=== PATIENT | female | born 1985 | race Caucasian/White ===

== ENCOUNTER 2019-04-15 13:20 | Emergency (ER) | payer OTHER ==
[~2019-04-15] VITALS: Ht 162.6 cm; Wt 59.1 kg
[~2019-04-15 13:20] MED LIST: MOTR200T44 PO; PERC5TAB12 PO; PERCOCET PO
[2019-04-15] MEDS ORDERED: MECL-68 PO (14:48)
[2019-04-15 14:55] VITALS: BP 138/77
--- NOTE | 2019-04-16 05:54 | ECGEPIP ---
[facility] - ED Test Date: 2019-04-15 Pat Name: ANTHONY WOODARD Department: Room: - Gender: Female District Supervisor: : 1985 Requested By: JOSE Christine PA-C Order Number: [id number] Reading MD: Kye De La Garza Measurements Intervals [place] Rate: 62 P: 71 OR: 126 QRS: 63 QRSD: 87 T: 40 QT: 397 QTc: 404 Interpretive Statements SINUS RHYTHM WITH SINUS ARRHYTHMIA NO PRIORS FOR COMPARISON Electronically Signed on 04-16-2019 5:54:27 EDT by Kye De La Garza
== END 2019-04-15 14:58 | disposition home or self-care (01) ==
LOC: M ED 13:20
DX: R42 Dizziness and giddiness (principal); H91.93 Unspecified hearing loss, bilateral; F17.200 Nicotine dependence, unspecified, uncomplicated; Z79.899 Other long term (current) drug therapy; I49.9 Cardiac arrhythmia, unspecified

== ENCOUNTER 2019-04-19 09:47 | Emergency (ER) | payer OTHER ==
[~2019-04-19] VITALS: Ht 162.6 cm; Wt 59.1 kg
[~2019-04-19 09:47] MED LIST changes: +MECL-68 PO
[2019-04-19] MEDS ORDERED: NS 1,000 ML IV ONE (11:00)
[2019-04-19 11:18] LABS: BASO # 0.1 10^3/uL (0.0-0.2); BASO % 0.7 % (0.0-1.0); EOS # 0.2 10^3/uL (0.0-0.5); EOS % 2.6 % (0.0-3.0); HEMATOCRIT 42.4 % (36.0-47.0); LYMPH # 2.3 10^3/uL (1.5-5.0); LYMPH % 30.4 % (24.0-44.0); MEAN CORPUSCULAR HEMOGLOBIN 30.2 pg (27.0-33.0); MEAN CORPUSCULAR VOLUME 91.6 fl (80.0-96.0); MONO # 0.7 10^3/uL (0.0-0.8); MONO % 8.5 % (0.0-5.0); NEUTROPHILS # 4.4 10^3/uL (1.5-8.5); NEUTROPHILS % 57.7 % (36.0-66.0); PLATELET COUNT, AUTOMATED 320 10^3/uL (150-450); RED BLOOD COUNT 4.63 10^6/uL (4.00-5.40); WHITE BLOOD COUNT 7.7 10^3/uL (4.0-10.0)
[2019-04-19 11:49] LABS: BLOOD UREA NITROGEN 4 MG/DL (7-18); CALCIUM LEVEL 9.6 MG/DL (8.5-10.1); CARBON DIOXIDE LEVEL 25 MEQ/L (21-32); CHLORIDE LEVEL 108 MEQ/L (98-107); FREE T4 0.92 NG/DL (0.76-1.46); GLOMERULAR FILTRATION RATE > 60.0 (>60); GLUCOSE, FASTING 82 MG/DL (70-100); POTASSIUM SERUM 4.2 MEQ/L (3.5-5.1); SODIUM LEVEL 139 MEQ/L (136-145)
--- NOTE | 2019-04-19 12:04 | REP ---
CT BRAIN WITHOUT IV CONTRAST: CT brain performed without IV contrast. The ventricles are normal in size and position. There is no midline shift or mass effect. Etienne-white differentiation is well maintained. There is no acute intracranial hemorrhage or extra-axial fluid collection. Bone window examination is unremarkable. IMPRESSION: Negative noncontrast CT of the brain. Electronically Signed by Zachary Etienne MD 04/20/2019 04:41 P
[2019-04-19] MEDS ORDERED: PRED20TA PO (13:58)
[2019-04-19] MEDS ORDERED: TETRACAINE 0.5% OPHTH SOLN 4ML OU ONE (14:00)
[2019-04-19] MEDS ORDERED: predniSONE 20 MG TAB PO ONE (14:00)
[2019-04-19 14:13] VITALS: BP 131/75
== END 2019-04-19 14:21 | disposition home or self-care (01) ==
LOC: M ED 09:47
DX: H01.9 Unspecified inflammation of eyelid (principal); R51 Headache; R26.9 Unspecified abnormalities of gait and mobility; F17.210 Nicotine dependence, cigarettes, uncomplicated; Z82.3 Family history of stroke; Z84.89 Family history of other specified conditions

== ENCOUNTER → 2019-05-01 | Outpatient (CLI) | payer OTHER ==
[~2019-05-01] MED LIST changes: +PRED20TA PO
--- NOTE | 2019-05-01 14:34 | REP ---
MR angiography the brain without contrast: History: Dizziness and giddiness. Technique: 3-D [id number] MR angiography of the brain is acquired in the usual fashion and maximal intensity projection images were generated in rotational format about the vertical and horizontal axes. In addition, source axial T1-weighted images are viewed in cine mode. MR angiographic findings: The distal vertebral arteries are patent and co-dominant. Basilar artery is a little tortuous but widely patent. The posterior cerebral and superior cerebellar vessels are normal and symmetric. The distal internal carotid arteries are unremarkable. Anterior and middle cerebral arteries appear intact. There is no visible bray aneurysm or arteriovenous malformation. Impression: Unremarkable MR angiography the brain. Electronically Signed by Ever Emmanuel MD 05/01/2019 02:25 P
--- NOTE | 2019-05-01 15:07 | REP ---
MRI brain without contrast: History: Dizziness and giddiness. . Comparison study: Comparison brain CT study April 19, 2019. Technique: Axial and sagittal imaging planes are utilized for T1 and T2-weighted scans. Sequences include spin-echo, fast spin echo, FLAIR, and diffusion weighted sequences. MRI findings: No bony calvarial lesion is seen. Craniocervical junction and upper cervical cord are normal in appearance. There is no MR evidence of significant paranasal sinus disease. No intraorbital abnormality is seen. The lateral, third, and fourth ventricles are normal in size and position. Etienne-white differentiation pattern is intact above and below the tentorium. There is no evidence of intracranial hemorrhage. No mass, infarction, extra-axial fluid collection or midline shift is seen. No abnormal white matter lesion is seen. Impression: Negative noncontrast brain MRI study. Electronically Signed by Ever Emmanuel MD 05/01/2019 02:58 P
--- NOTE | 2019-05-01 19:32 | REP ---
LIMITED CERVICAL SPINE SERIES: AP and lateral views of the cervical spine are performed. No compression fracture is seen. There is normal alignment and cervical lordosis. There is no prevertebral soft-tissue swelling. Disc spaces are well preserved. I do not see significant degenerative disc change. IMPRESSION: Negative two view cervical spine series. Electronically Signed by Zachary Etienne MD 05/02/2019 04:50 P
--- NOTE | 2019-05-01 19:39 | REP ---
CHEST, TWO VIEWS: Two views of the chest are performed. There are no prior studies for comparison. There is oval mass like density along the right heart border which appears to be located in the posterior mediastinum on the lateral view. This measures approximately 5 cm in maximum diameter. Otherwise the lungs are clear of infiltrate. The heart is normal in size and the mediastinal silhouette is otherwise unremarkable. Visualized osseous structures appear intact. IMPRESSION: Oval mass like density right inferior posterior mediastinum. Recommend CT of the chest with IV contrast to further evaluate. Electronically Signed by Zachary Etienne MD 05/03/2019 04:00 P
== END ==
LOC: M RAD 13:32
PROVIDERS: ATTEND Family Medicine
DX: R42 Dizziness and giddiness (principal); R51 Headache

== ENCOUNTER → 2019-05-23 | Outpatient (CLI) | payer OTHER ==
[2019-05-23 10:23] LABS: APPEARANCE, URINE CLEAR (CLEAR); BACTERIA, URINE AUTO NEGATIVE (NEGATIVE); BILIRUBIN, URINE AUTO NEGATIVE (NEGATIVE); BLOOD, URINE BLOOD NEGATIVE (NEGATIVE); COLOR, URINE YELLOW (YELLOW); GLUCOSE, URINE (UA) AUTO NEGATIVE (NEGATIVE); KETONE, URINE AUTO NEGATIVE (NEGATIVE); LEUKOCYTE ESTERASE, URINE AUTO NEGATIVE (NEGATIVE); MUCUS, URINE SMALL (NEGATIVE); NITRITE, URINE AUTO NEGATIVE (NEGATIVE); PROTEIN, URINE AUTO NEGATIVE (NEGATIVE); RBC, URINE AUTO 2 /HPF (0-3); SPECIFIC GRAVITY URINE AUTO 1.012 (1.002-1.035); SQUAMOUS EPITHELIAL CELL UR AU 1 /HPF (0-6); UROBILINOGEN, URINE AUTO 0.2 mg/dL (0.0-2.0); WBC, URINE AUTO 0 /HPF (0-3)
[2019-05-23 10:54] LABS: HCG, SERUM QUALITATIVE NEGATIVE (NEGATIVE)
[2019-05-23 11:10] LABS: ALBUMIN 3.7 GM/DL (3.2-5.2); ALT/SGPT 15 U/L (12-78); BILIRUBIN,TOTAL 0.3 MG/DL (0.2-1.0); BLOOD UREA NITROGEN 6 MG/DL (7-18); C REACTIVE PROTEIN QUANTITATIV < 0.30 MG/DL (0.00-0.30); CARBON DIOXIDE LEVEL 26 MEQ/L (21-32); CHLORIDE LEVEL 105 MEQ/L (98-107); CREATININE FOR GFR 0.79 MG/DL (0.55-1.30); FREE T4 0.86 NG/DL (0.76-1.46); GLOMERULAR FILTRATION RATE > 60.0 (>60); GLUCOSE, FASTING 81 MG/DL (70-100); POTASSIUM SERUM 4.4 MEQ/L (3.5-5.1); SODIUM LEVEL 139 MEQ/L (136-145); TOTAL PROTEIN 6.6 GM/DL (6.4-8.2); TROPONIN I < 0.02 NG/ML (< 0.10)
[2019-05-23 11:58] LABS: HEMOGLOBIN A1c 5.4 %
[2019-05-24 14:07] LABS: ANTINUCLEAR ANTIBODIES DIRECT Negative (Negative)
== END ==
LOC: M LAB 09:28
PROVIDERS: ATTEND Family Medicine
DX: R42 Dizziness and giddiness (principal); R51 Headache

== ENCOUNTER → 2019-05-24 | Outpatient (REF) | payer MEDICAID ==
[~2019-05-24] MED LIST changes: +ISOVUE-370 76% 100ML VIAL (Q9967) As Ordered ONE; +NICO1KIT TOP
--- NOTE | 2019-05-24 16:36 | REP ---
CT CHEST WITH IV CONTRAST: TECHNIQUE: Axial contrast enhanced images from the thoracic inlet to the upper abdomen using 100 mL Isovue 370 intravenous contrast material with multiplanar reformations. In the right posterior mediastinum is an oval paravertebral mass which measures 3.5 x 2.7 cm. It is somewhat low in density but is not purely water with a mean Hounsfield unit of approximately 42 suggesting either internal complex fluid or solid tissue. Margins are fairly smooth. There is no other evidence of mediastinal, hilar or chest wall lymphadenopathy. Heart is normal in size. There is no pleural or pericardial effusion. Lungs are otherwise clear with no infiltrate. Visualized upper abdominal structures are unremarkable. IMPRESSION: Right posterior mediastinal mass in a paravertebral location measuring 3.5 x 2.7 cm. Internal contents are either complex fluid or solid. 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 Electronically Signed by Zachary Etienne MD 05/27/2019 10:04 A
== END ==
LOC: EDSTATUS 14:55 → M RAD 15:09
PROVIDERS: ATTEND Family Medicine
DX: R91.8 Other nonspecific abnormal finding of lung field (principal)

== ENCOUNTER → 2019-06-12 | Outpatient (CLI) | payer MEDICAID ==
[~2019-06-12] MED LIST changes: -ISOVUE-370 76% 100ML VIAL (Q9967) As Ordered ONE
[2019-06-12 13:39] LABS: HEMATOCRIT 37.6 % (36.0-47.0); HEMOGLOBIN 12.2 g/dl (12.0-15.5); MEAN CORPUSCULAR HEMOGLOBIN 30.3 pg (27.0-33.0); MEAN CORPUSCULAR HGB CONC 32.4 g/dl (32.0-36.5); MEAN CORPUSCULAR VOLUME 93.3 fl (80.0-96.0); PLATELET COUNT, AUTOMATED 286 10^3/uL (150-450); RED BLOOD COUNT 4.03 10^6/uL (4.00-5.40); WHITE BLOOD COUNT 5.6 10^3/uL (4.0-10.0)
[2019-06-12 13:50] LABS: INR 1.12; PROTHROMBIN TIME 14.1 SECONDS (11.8-14.0)
[2019-06-12 13:51] LABS: PARTIAL THROMBOPLASTIN TIME 29.9 SECONDS (25.0-38.4)
[2019-06-12 13:53] LABS: APPEARANCE, URINE CLEAR (CLEAR); BACTERIA, URINE AUTO NEGATIVE (NEGATIVE); BILIRUBIN, URINE AUTO NEGATIVE (NEGATIVE); BLOOD, URINE BLOOD NEGATIVE (NEGATIVE); COLOR, URINE STRAW (YELLOW); GLUCOSE, URINE (UA) AUTO NEGATIVE (NEGATIVE); KETONE, URINE AUTO NEGATIVE (NEGATIVE); LEUKOCYTE ESTERASE, URINE AUTO NEGATIVE (NEGATIVE); NITRITE, URINE AUTO NEGATIVE (NEGATIVE); PROTEIN, URINE AUTO NEGATIVE (NEGATIVE); RBC, URINE AUTO 1 /HPF (0-3); SPECIFIC GRAVITY URINE AUTO 1.005 (1.002-1.035); SQUAMOUS EPITHELIAL CELL UR AU 0 /HPF (0-6); UROBILINOGEN, URINE AUTO 0.2 mg/dL (0.0-2.0); WBC, URINE AUTO 0 /HPF (0-3)
[2019-06-12 13:59] LABS: ABG BASE EXCESS -1.7 (-2.0-2.0); ABG HCO3 21.3 MEQ/L (22.0-26.0); ABG O2 SATURATION 98.4 % (95.0-99.0); ABG PARTIAL PRESSURE CO2 31.1 mmHg (35.0-45.0); ABG PARTIAL PRESSURE O2 113.3 mmHg (75.0-100.0); ABG STANDARD HCO3 23.1 MEQ/L (22.0-26.0); ABG TOTAL CO2 22.3 MEQ/L (22.0-29.0); ABG pH (ARTERIAL) 7.454 UNITS (7.350-7.450)
[2019-06-12 14:09] LABS: BLOOD UREA NITROGEN 6 MG/DL (7-18); CALCIUM LEVEL 8.3 MG/DL (8.5-10.1); CARBON DIOXIDE LEVEL 25 MEQ/L (21-32); CHLORIDE LEVEL 109 MEQ/L (98-107); GLOMERULAR FILTRATION RATE > 60.0 (>60); GLUCOSE, FASTING 92 MG/DL (70-100); POTASSIUM SERUM 3.8 MEQ/L (3.5-5.1); SODIUM LEVEL 140 MEQ/L (136-145)
--- NOTE | 2019-06-12 14:29 | REP ---
Two-view chest: 06/12/2019. Indication: Mass. Comparison: 05/01/2019 and 05/24/2019. Findings: The paraspinal soft tissue mass is redemonstrated. The lungs are clear. There is no pleural effusion or pneumothorax. Impression: Stable right paraspinal soft tissue mass. No acute findings. Electronically Signed by Jian Christensen DO 06/12/2019 02:21 P
--- NOTE | 2019-06-12 15:15 | ECGEPIP ---
[facility] Test Date: 2019-06-12 Pat Name: ANTHONY WOODARD Department: Room: - Gender: Female Cloud Software Engineer: MORA : 1985 Requested By: Joe Roldan Order Number: [id number] Reading MD: Sharmaine Patel Measurements Intervals [place] Rate: 70 P: 65 OK: 125 QRS: 54 QRSD: 87 T: 17 QT: 380 QTc: 412 Interpretive Statements SINUS RHYTHM INF T ABN MORE PROUNOUNCED C/W 04/15/19 Electronically Signed on 06-12-2019 15:14:49 EST by Sharmaine Patel
== END ==
LOC: M ADMPAT 12:57
PROVIDERS: ATTEND Thoracic Surgery (Cardiothoracic Vascular Surgery)
DX: Z01.818 Encounter for other preprocedural examination (principal); R22.2 Localized swelling, mass and lump, trunk

== ENCOUNTER → 2019-06-13 | Outpatient (REF) | payer MEDICAID ==
[2019-06-14 09:52] LABS: HIV 1&2 SCREEN CENTAUR NEGATIVE (NEGATIVE)
== END ==
LOC: M LAB 12:45 → EDSTATUS 06-26 14:03
PROVIDERS: ATTEND Family Medicine
DX: Z20.2 Contact with and (suspected) exposure to infections with a predominantly sexual mode of transmission (principal)

== ENCOUNTER 2019-06-19 08:59 | Inpatient (IN) | payer MEDICAID ==
[~2019-06-19] VITALS: Ht 162.6 cm; Wt 65.5 kg
[~2019-06-19 08:59] MED LIST changes: +LIDOCAINE 1% MDV 20ML VIAL SQ PRN; +LIDOCAINE 2% INJ 100 MG/5 ML SDV (FOR ANES.) As Ordered ONE; +LR 1,000 ML IV SCH; +MIDAZOLAM INJ 2 MG/2 ML VIAL (J2250) As Ordered ONE; +PROPOFOL 200 MG/20 ML VIAL As Ordered ONE; +ROCURONIUM BROMIDE 50 MG/5 ML VIAL As Ordered ONE; +ceFAZolin SOD 2 GM in IV 1 EA IV ONE; +fentaNYL 250 MCG/5 ML INJECTION (J3010) As Ordered ONE
[2019-06-19] MEDS: NICOTINE 21MG/24HR 1 EA TRANSDERMAL TD SCH (09:00)
[2019-06-19] MEDS ORDERED: CETACAINE SPRAY 5GM As Ordered ONE (09:50)
[2019-06-19] MEDS ORDERED: BUPIVACAINE LIPOSOME/PF 1.3% 20ML VIAL (13.3MG/ML)(EXPAREL)(C9290 PER1MG) As Ordered ONE (09:50)
[2019-06-19] MEDS ORDERED: BUPIVACAINE HCL 0.5% 10 ML VIAL As Ordered ONE (09:50)
[2019-06-19] MEDS ORDERED: fentaNYL 100 MCG/2 ML INJECTION (J3010) As Ordered ONE (10:19)
[2019-06-19] MEDS ORDERED: MIDAZOLAM INJ 2 MG/2 ML VIAL (J2250) As Ordered ONE (10:19)
[2019-06-19] MEDS: MUPIROCIN 2% OINT 22 GM TUBE TOP SCH ×2 (10:55→11:01)
[2019-06-19] MEDS ORDERED: ESMOLOL INJ 100MG/10ML VIAL As Ordered ONE (11:14)
[2019-06-19] MEDS ORDERED: ONDANSETRON 4MG/2ML VIAL (J2405) IV PRN ×3 (11:15→14:00)
[2019-06-19] MEDS ORDERED: MIDAZOLAM INJ 2 MG/2 ML VIAL (J2250) IV ONE (11:15)
[2019-06-19] MEDS ORDERED: NALOXONE INJ 0.4 MG/1 ML VIAL (J2310) IV PRN (11:15)
[2019-06-19] MEDS ORDERED: EPIDURAL/PCA KEYS XX PRN (11:15)
[2019-06-19] MEDS ORDERED: METOCLOPRAMIDE INJ 10MG/2ML VIAL (J2765) IV PRN (11:15)
[2019-06-19] MEDS ORDERED: fentaNYL 100 MCG/2 ML INJECTION (J3010) IV ONE (11:15)
[2019-06-19] MEDS ORDERED: WALLBOXKEY XX PRN (11:15)
[2019-06-19] MEDS ORDERED: diphenhydrAMINE INJ 50MG/ML VIAL (J1200) IV PRN (11:15)
[2019-06-19] MEDS: FENTANYL/BUPIVACAINE/NACL BAG 250 ML EPIDURAL SCH (11:15)
[2019-06-19] MEDS ORDERED: dexameTHASONE 4 MG/ML 1ML VIAL (J1100) As Ordered ONE (12:22)
[2019-06-19] MEDS ORDERED: KETOROLAC 60 MG/2 ML VIAL (J1885) As Ordered ONE (12:22)
[2019-06-19] MEDS ORDERED: ONDANSETRON 4MG/2ML VIAL (J2405) As Ordered ONE (12:22)
[2019-06-19] MEDS ORDERED: SUGAMMADEX SODIUM 500 MG/5 ML VIAL (BRIDION) As Ordered ONE (12:22)
[2019-06-19] MEDS ORDERED: BUPIVACAINE HCL 0.25% 30 ML VIAL As Ordered ONE (12:43)
[2019-06-19] MEDS ORDERED: PERCOCET 5MG/325MG TAB PO PRN ×2 (13:15)
[2019-06-19] MEDS ORDERED: ACETAMINOPHEN TAB 650MG DOSE (2X325MG) PO PRN (13:15)
[2019-06-19] MEDS ORDERED: BISACODYL 10 MG SUPP PR PRN (13:15)
[2019-06-19] MEDS ORDERED: LEVALBUTEROL 1.25 MG/0.5 ML CONCENTRATE NEB NEB PRN (13:15)
[2019-06-19] MEDS ORDERED: NORCO, ANEXSIA 5/325MG TABLET (HYDROcodone/ACETAMINOPHEN) PO PRN (13:15)
--- NOTE | 2019-06-19 13:51 | REP ---
Single view chest: 06/19/2019. Indication: Chest tube. Comparison: 06/12/2019. Findings: Postoperative sequelae are present with two right-sided chest tubes. There is no significant pneumothorax. The previously described right paraspinal mass has been resected. Impression: Postoperative sequelae with two right-sided chest tubes and no significant pneumothorax. Electronically Signed by Jian Christensen DO 06/19/2019 01:43 P
[2019-06-19 13:54] LABS: ABG BASE EXCESS -3.7 (-2.0-2.0); ABG HCO3 21.9 MEQ/L (22.0-26.0); ABG O2 SATURATION 99.8 % (95.0-99.0); ABG PARTIAL PRESSURE O2 412.3 mmHg (75.0-100.0); ABG STANDARD HCO3 21.4 MEQ/L (22.0-26.0); ABG TOTAL CO2 23.2 MEQ/L (22.0-29.0); ABG pH (ARTERIAL) 7.336 UNITS (7.350-7.450)
[2019-06-19 13:59] LABS: BASO % 0.5 % (0.0-1.0); EOS # 0.1 10^3/uL (0.0-0.5); EOS % 1.2 % (0.0-3.0); HEMATOCRIT 40.7 % (36.0-47.0); HEMOGLOBIN 13.1 g/dl (12.0-15.5); LYMPH # 1.2 10^3/uL (1.5-5.0); LYMPH % 14.4 % (24.0-44.0); MEAN CORPUSCULAR HEMOGLOBIN 30.3 pg (27.0-33.0); MEAN CORPUSCULAR HGB CONC 32.2 g/dl (32.0-36.5); MONO # 0.3 10^3/uL (0.0-0.8); MONO % 3.9 % (0.0-5.0); NEUTROPHILS # 6.7 10^3/uL (1.5-8.5); NEUTROPHILS % 79.6 % (36.0-66.0); PLATELET COUNT, AUTOMATED 262 10^3/uL (150-450); RED BLOOD COUNT 4.33 10^6/uL (4.00-5.40); WHITE BLOOD COUNT 8.4 10^3/uL (4.0-10.0)
[2019-06-19] MEDS ORDERED: fentaNYL 100 MCG/2 ML INJECTION (J3010) IV PRN (14:00)
[2019-06-19] MEDS ORDERED: LR 1,000 ML IV SCH (14:00)
[2019-06-19] MEDS ORDERED: oxyCODONE 5MG TAB PO PRN (14:00)
[2019-06-19] MEDS ORDERED: KCL 20MEQ IN D5/NS 1000ML 1,000 ML IV SCH (14:00)
[2019-06-19 14:28] LABS: BLOOD UREA NITROGEN 6 MG/DL (7-18); CALCIUM LEVEL 8.7 MG/DL (8.5-10.1); CARBON DIOXIDE LEVEL 23 MEQ/L (21-32); CHLORIDE LEVEL 109 MEQ/L (98-107); CREATININE FOR GFR 0.69 MG/DL (0.55-1.30); GLOMERULAR FILTRATION RATE > 60.0 (>60); GLUCOSE, FASTING 125 MG/DL (70-100); POTASSIUM SERUM 4.3 MEQ/L (3.5-5.1); SODIUM LEVEL 138 MEQ/L (136-145)
[2019-06-19] MEDS: MECLIZINE 25 MG TABLET PO SCH ×2 (16:00→20:39)
[2019-06-19 17:49] VITALS: BP 103/60
[2019-06-19 18:00] VITALS: BP 99/58
[2019-06-19] MEDS: KETOROLAC 30 MG/ML VIAL (J1885) IV SCH ×2 (18:20→23:23)
[2019-06-19] MEDS: ceFAZolin SOD 1 GM in D5W MINI-BAG PLUS 50 ML IV SCH (18:20)
[2019-06-19 20:00] VITALS: BP 100/69
[2019-06-19] MEDS: LEVALBUTEROL 1.25 MG/0.5 ML CONCENTRATE NEB NEB SCH (20:14)
[2019-06-19] MEDS: DOCUSATE SODIUM 100 MG CAP PO SCH (20:24)
[2019-06-19] MEDS: HEPARIN SOD (PORCINE) 5000 UNITS/ML VIAL SC SCH (20:25)
[2019-06-20] VITALS: BP 98/55
[2019-06-20] MEDS: LEVALBUTEROL 1.25 MG/0.5 ML CONCENTRATE NEB NEB SCH ×4 (01:07→20:35)
[2019-06-20] MEDS: ceFAZolin SOD 1 GM in D5W MINI-BAG PLUS 50 ML IV SCH ×3 (03:04→17:58)
[2019-06-20 04:00] VITALS: BP 101/59
[2019-06-20 05:26] LABS: BASO % 0.2 % (0.0-1.0); HEMATOCRIT 33.7 % (36.0-47.0); LYMPH # 1.6 10^3/uL (1.5-5.0); MEAN CORPUSCULAR HEMOGLOBIN 30.4 pg (27.0-33.0); MEAN CORPUSCULAR HGB CONC 32.3 g/dl (32.0-36.5); MEAN CORPUSCULAR VOLUME 93.9 fl (80.0-96.0); MONO % 6.7 % (0.0-5.0); NEUTROPHILS # 11.8 10^3/uL (1.5-8.5); NEUTROPHILS % 81.6 % (36.0-66.0); PLATELET COUNT, AUTOMATED 245 10^3/uL (150-450); RED BLOOD COUNT 3.59 10^6/uL (4.00-5.40); WHITE BLOOD COUNT 14.4 10^3/uL (4.0-10.0)
[2019-06-20 05:32] LABS: HEMOGLOBIN 10.9 g/dl (12.0-15.5)
[2019-06-20 05:46] LABS: BLOOD UREA NITROGEN 3 MG/DL (7-18); CALCIUM LEVEL 7.7 MG/DL (8.5-10.1); CARBON DIOXIDE LEVEL 23 MEQ/L (21-32); CHLORIDE LEVEL 102 MEQ/L (98-107); CREATININE FOR GFR 0.63 MG/DL (0.55-1.30); GLOMERULAR FILTRATION RATE > 60.0 (>60); GLUCOSE, FASTING 125 MG/DL (70-100); POTASSIUM SERUM 4.3 MEQ/L (3.5-5.1); SODIUM LEVEL 132 MEQ/L (136-145)
[2019-06-20] MEDS: MUPIROCIN 2% OINT 22 GM TUBE TOP SCH (06:00)
[2019-06-20] MEDS: KETOROLAC 30 MG/ML VIAL (J1885) IV SCH ×3 (06:21→17:58)
[2019-06-20 08:00] VITALS: BP 99/59
--- NOTE | 2019-06-20 08:10 | RO ---
DATE OF PROCEDURE: 06/19/2019 PREOPERATIVE DIAGNOSIS: Posterior mediastinal mass. 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 PROCEDURE: Excision of posterior mediastinal mass using video-assisted thoracoscopic surgery (VATS) techniques and bronchoscopy, five level rib block. SURGEON: Dr. Joe Sorensen MOTION PI[employer]URE CAMERA OPERATOR: ANESTHESIA: FINDINGS: The bronchoscopy revealed a normal branching tracheal bronchial tree. There were no endobronchial lesions. There were just some scant secretions on the right side. The VATS thoracoscopy revealed the posterior mediastinal tumor. This was quite discrete. This was removed in toto. I could not aspirate fluid from it, although it felt as if there was fluid in it. PROCEDURE: Under satisfactory general anesthesia and single lumen endotracheal intubation, the bronchoscope was placed in the tracheal bronchial tree. Each segment and subsegment were thoroughly inspected and there were no endobronchial lesions. There were scant secretions. The right upper lobe was clearly seen and anesthesia was made aware. The patient was then turned into the left lateral decubitus position and sterilely prepped and draped in the usual fashion. Three VATS incisions were made, initially placing three 5 mm ports. The tumor was easily visualized and there were no adhesions from the lung to the tumor. After placing the ports, the posterior mediastinal mass was then seized with a grasper and electrocautery was used to incise the mediastinal pleura and the chest wall pleura. The mass was gently dissected off the chest wall. There was no indication of it involving the neural foramen. One posterior thoracic vein was entered and this was controlled by use of hemoclips. No intercostal arteries or spinal arteries were entered. After achieving adequate hemostasis, two chest tubes, one curved and one straight #24 tubes, were placed through two of the port incisions. A 5 level rib block consisting of 0.50% Marcaine and Exparel was then instilled. The lung was reinflated under direct vision and the remaining port removed. The incision was closed with running #0 Vicryl for the extrathoracic muscles, running #3-0 Vicryl suture for the subcutaneous tissue and running #4-0 Monopril suture for the skin. The patient tolerated the procedure well and left the operating room in satisfactory condition for the recovery room.
[2019-06-20] MEDS ORDERED: FUROSEMIDE 40 MG/4 ML VIAL (J1940) IV ONE (08:30)
--- NOTE | 2019-06-20 08:30 | REP ---
Chest x-ray: Two views. History: Status post excision of posterior mediastinal mass. Comparison chest x-ray June 19, 2019. Findings: Two right-sided chest tubes are again seen. The right lung field is otherwise clear. There is minimal plate-like atelectasis in the left base. Cardiomediastinal silhouette is unremarkable. There are surgical clips to the right of midline overlying the heart. An epidural catheter is seen. Impression: Satisfactory postoperative film. Minimal plate-like atelectasis left base. Very is slight blunting of one of the posterior pleural angle is seen. Electronically Signed by Ever mEmanuel MD 06/20/2019 03:29 P
[2019-06-20] MEDS ORDERED: PANTOPRAZOLE 40MG INJ (PROTONIX) (C9113) IV SCH (09:00)
[2019-06-20] MEDS: MECLIZINE 25 MG TABLET PO SCH (09:00)
[2019-06-20] MEDS: NICOTINE 21MG/24HR 1 EA TRANSDERMAL TD SCH (09:00)
[2019-06-20] MEDS: MOM 30ML SUSPENSION UDC PO SCH (09:25)
[2019-06-20] MEDS: DOCUSATE SODIUM 100 MG CAP PO SCH ×2 (09:25→20:26)
[2019-06-20] MEDS: HEPARIN SOD (PORCINE) 5000 UNITS/ML VIAL SC SCH ×2 (09:25→20:26)
[2019-06-20] MEDS: PANTOPRAZOLE 40MG TAB (PROTONIX) PO SCH (09:25)
[2019-06-20] MEDS ORDERED: MECLIZINE 25 MG TABLET PO PRN (10:15)
--- NOTE | 2019-06-20 10:43 | IPN ---
DATE: 06/20/2019 This is now the first postoperative day for Mrs. Welsh who had an uneventful night the first night of surgery. Her pain is being well controlled with the epidural. Her vital signs show a T-max of 99.4 with a heart rate that ranges between 79 and 83 and is sinus rhythm, respiratory rate of 18-20 without the use of accessory muscles, who is 99% saturated on room air, and whose blood pressure is ranging from 99/59 to 103/60. Her intake and output the past 24 hours has been recorded as 2860 in and 1070 out for a positivity of 1790 mL. She has had 150 mL out the chest tube and her weight today is 64.8 kg compared to 61 kg yesterday. On physical examination today, her right lung shows some inspiratory rhonchi. Percussion note is full to the diaphragm. Cardiac exam is without murmurs, clicks, gallops or rubs. I cannot feel his point of maximal impulse (PMI). S1 and S2 are normal. Abdomen is soft and nontender. Bowel sounds are positive. There is no hepatomegaly. No costovertebral angle (CVA) tenderness. She has had flatus. Extremities show no pretibial edema. No calf tenderness. No differential swelling of the upper extremities. Skin is warm, dry and perfused without cyanosis or mottling including that of the nail beds and the knees. Neck is supple. There is no jugular venous distention. No subcutaneous emphysema. Trachea is midline. Mouth shows her mucous membranes to be pink and moist. Lips and commissures are without lesions. There is no thrush. Eyes show her pupils to be equal, reactive. Extraocular motors are intact. Sclera nonicteric. Neuro shows II through XII intact, along with gross motor and gross sensation intact. Gait is not tested. Psychiatric shows her to be awake and alert, oriented times three with appropriate mood, affect and conversational. Her white count today is 14.4 with a hemoglobin and hematocrit of 10.9 and 33.7, down from 13.1 and 40.7, secondary to hemodilution. Platelet count is 245. Differential shows 81% neutrophils, 11% lymphocytes, and 6% monocytes. There are no immature forms, no toxic granulations. Her sodium is 132 with a BUN and creatinine of 33 and 0.63. Potassium is 4.3 with a glucose of 125 and calcium of 7.7. Her chest x-ray shows the lung fully expanded to the chest wall. Costophrenic angles are sharp and there are no infiltrates. The mediastinal mass is now absent. Final pathology is pending, but the mass did feel cystic yesterday and ballotable. 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 IMPRESSION: 1. Postop day 1 status post excision of posterior mediastinal mass. 2. Prior tobacco abuse. 3. Prior history of anxiety and depression. PLAN AND DISCUSSION: I will diurese her today. Hopefully we will be able to remove the chest tubes tomorrow and send her home on . We await final pathology.
[2019-06-20] MEDS: FENTANYL/BUPIVACAINE/NACL BAG 250 ML EPIDURAL SCH (11:23)
[2019-06-20 13:00] VITALS: BP 97/52
[2019-06-20 16:00] VITALS: BP 93/52
[2019-06-20 20:00] VITALS: BP 92/46
[2019-06-21] VITALS: BP 90/45
[2019-06-21] MEDS: KETOROLAC 30 MG/ML VIAL (J1885) IV SCH ×4 (00:56→17:10)
[2019-06-21] MEDS: LEVALBUTEROL 1.25 MG/0.5 ML CONCENTRATE NEB NEB SCH ×4 (01:46→19:53)
[2019-06-21] MEDS: ceFAZolin SOD 1 GM in D5W MINI-BAG PLUS 50 ML IV SCH ×2 (03:28→10:14)
[2019-06-21 04:00] VITALS: BP 98/55
[2019-06-21 05:20] LABS: BASO % 0.6 % (0.0-1.0); EOS # 0.1 10^3/uL (0.0-0.5); EOS % 1.8 % (0.0-3.0); HEMATOCRIT 28.9 % (36.0-47.0); HEMOGLOBIN 9.6 g/dl (12.0-15.5); LYMPH # 1.9 10^3/uL (1.5-5.0); LYMPH % 38.3 % (24.0-44.0); MEAN CORPUSCULAR HEMOGLOBIN 30.4 pg (27.0-33.0); MEAN CORPUSCULAR HGB CONC 33.2 g/dl (32.0-36.5); MEAN CORPUSCULAR VOLUME 91.5 fl (80.0-96.0); MONO # 0.6 10^3/uL (0.0-0.8); MONO % 11.7 % (0.0-5.0); NEUTROPHILS # 2.4 10^3/uL (1.5-8.5); NEUTROPHILS % 47.4 % (36.0-66.0); PLATELET COUNT, AUTOMATED 221 10^3/uL (150-450); RED BLOOD COUNT 3.16 10^6/uL (4.00-5.40); WHITE BLOOD COUNT 5.1 10^3/uL (4.0-10.0)
[2019-06-21 05:48] LABS: BLOOD UREA NITROGEN 9 MG/DL (7-18); CALCIUM LEVEL 8.2 MG/DL (8.5-10.1); CARBON DIOXIDE LEVEL 28 MEQ/L (21-32); CHLORIDE LEVEL 103 MEQ/L (98-107); CREATININE FOR GFR 0.73 MG/DL (0.55-1.30); GLOMERULAR FILTRATION RATE > 60.0 (>60); GLUCOSE, FASTING 96 MG/DL (70-100); POTASSIUM SERUM 3.9 MEQ/L (3.5-5.1); SODIUM LEVEL 136 MEQ/L (136-145)
[2019-06-21 08:00] VITALS: BP 116/55
--- NOTE | 2019-06-21 08:04 | REP ---
Chest x-ray: Two views. History: Post excision of posterior mediastinal mass. Comparison chest x-ray: June 20, 2019. Findings: EKG monitoring electrodes overlie the chest. Epidural catheter is seen in place. Two right apical chest tubes are noted. There is minimal plate-like atelectasis in the left base. Otherwise, the lung carr are clear. No new abnormality. Electronically Signed by Ever Emmanuel MD 06/21/2019 09:48 A
[2019-06-21] MEDS: PANTOPRAZOLE 40MG TAB (PROTONIX) PO SCH (08:55)
[2019-06-21] MEDS: DOCUSATE SODIUM 100 MG CAP PO SCH ×2 (08:55→21:42)
[2019-06-21] MEDS: MOM 30ML SUSPENSION UDC PO SCH (08:55)
[2019-06-21] MEDS: NICOTINE 21MG/24HR 1 EA TRANSDERMAL TD SCH (08:56)
[2019-06-21] MEDS: HEPARIN SOD (PORCINE) 5000 UNITS/ML VIAL SC SCH ×2 (08:56→21:42)
[2019-06-21] MEDS: FENTANYL/BUPIVACAINE/NACL BAG 250 ML EPIDURAL SCH (10:10)
[2019-06-21 10:54] LABS: CHOLESTEROL LEVEL 112 MG/DL (< 200); LDH LACTATE DEHYDROGENASE 125 U/L (84-246); TOTAL PROTEIN 5.4 GM/DL (6.4-8.2); TRIGLYCERIDES LEVEL 132 MG/DL (<150)
[2019-06-21 11:28] LABS: SOURCE, BODY FLUID PLEURAL; SOURCE, BODY FLUID pH PLEURAL
[2019-06-21 11:29] LABS: APPEARANCE, BODY FLUID CLOUDY (CLEAR); PLEURAL FL COLOR PINK (COLORLESS)
[2019-06-21 11:33] LABS: PH BODY FLUID > 7.800 UNITS (NOT ESTABLISHED)
--- NOTE | 2019-06-21 11:40 | IPN ---
DATE OF SERVICE: 06/21/2019 This is now the second postoperative day for Mrs. Welsh. Her pain is being well controlled with the epidural at 10 mL/h. She is breathing well. Her vital signs show a maximum temperature (Tmax) of 98.9 with a heart rate that ranges between 57 and 83 in a sinus rhythm, respiratory rate of 18-20 without the use of accessory muscles, who is 98% saturated on room air, and whose blood pressure is ranging from 90/45 to 116/55. Her intake and output over the past 24 hours has been recorded as 3080 in and 3000 out for near equality. She has put out 270 mL from the chest tube, and there is no air leak. The chest tube, however, does have a very creamy-looking quality to it. Nursing staff noted this last night at around 5 o'clock. Her weight today is 65.1 kg compared to 64.8 kg yesterday. On physical examination, she has some coarse crackles on the right side, which clear with coughing. Percussion note is full to the diaphragm. Cardiac examination is without murmurs, clicks, gallops, or rubs. I cannot feel her point of maximal impulse (PMI). S1 and S2 are normal. Abdomen is soft and nontender. Bowel sounds are positive. There is no hepatomegaly. No costovertebral angle (CVA) tenderness. Extremities show no pretibial edema. No calf tenderness. No differential swelling of the upper extremities. Skin is warm, dry, and perfused without cyanosis or mottling, including that of the nail beds and the knees. Neck is supple. There is no jugular venous distention. No subcutaneous emphysema. Trachea is midline. Mouth shows her mucous membranes to be pink and moist. Lips and commissures without lesions. There is no thrush. Eyes show her pupils to be equal and reactive. Extraocular motor intact. Sclerae anicteric. Neurologic shows II-XII intact, along with gross motor and gross sensation intact. Gait is also intact, according to the nurses, as she has walked down to x-ray. Psychiatric shows her to be awake and alert, oriented times three with appropriate mood and affect and conversational. Her white count today is 5.1 with hemoglobin and hematocrit of 9.6 and 28.9, respectively, down from 10.9 and 33.7 yesterday. This is secondary to hemodilution. Platelet count is 221, and differential shows 47% neutrophils, 38% lymphocytes, and 11% monocytes. There are no immature forms, no toxic granulations. Her electrolytes are normal with a BUN and creatinine of 9 and 0.73, a glucose of 96, and a calcium of 8.2. Her chest x-ray shows her lung fully expanded to the chest wall. Costophrenic angles are sharp. IMPRESSION: 1. Postoperative day #2, status post excision of posterior mediastinal mass. Final pathology pending. Perhaps a dermoid cyst. 2. Prior tobacco abuse. 3. Prior history of anxiety and depression. 4. Possible chylothorax. PLAN AND DISCUSSION: I will send the pleural fluid off for chemistries, to include triglycerides and cholesterol with corresponding serum determinations. This looks creamy but does not look like pus, and there is no evidence to suggest it is pus. I am concerned that this was a posterior mediastinal mass and that the could inadvertently have been divided as its course is quite variable. I will see what the output continues to be, as well as the quality of the fluid. If her output continues to be relatively low, I will defer treating it.
[2019-06-21 12:00] VITALS: BP 105/56
[2019-06-21 12:04] LABS: AMYLASE, BODY FLUID 49 U/L (NOT ESTABLISHED); CHOLESTEROL, BODY FLUID < 50 MG/DL (NOT ESTABLISHED); LDH, BODY FLUID 670 U/L (NOT ESTABLISHED); SOURCE, BODY FLUID ALBUMIN PLEURAL; SOURCE, BODY FLUID AMYLASE PLEURAL; SOURCE, BODY FLUID CHOL PLEURAL; SOURCE, BODY FLUID GLUCOSE PLEURAL; SOURCE, BODY FLUID LDH PLEURAL; SOURCE, BODY FLUID TOT PROTEIN PLEURAL; SOURCE, BODY FLUID TRIG PLEURAL; TOTAL PROTEIN, BODY FLUID 2.1 G/DL (NOT ESTABLISHED); TRIGLYCERIDE, BODY FLUID 301 MG/DL (NOT ESTABLISHED)
[2019-06-21 16:00] VITALS: BP 113/59
[2019-06-21 20:00] VITALS: BP 99/54
[2019-06-22] VITALS (9 sets, daily range): BP systolic 94–147; BP diastolic 52–80
[2019-06-22] MEDS: KETOROLAC 30 MG/ML VIAL (J1885) IV SCH ×5 (00:21→23:50)
[2019-06-22] MEDS: LEVALBUTEROL 1.25 MG/0.5 ML CONCENTRATE NEB NEB SCH ×4 (01:32→20:06)
[2019-06-22 05:14] LABS: BASO % 0.4 % (0.0-1.0); EOS # 0.2 10^3/uL (0.0-0.5); EOS % 3.4 % (0.0-3.0); HEMOGLOBIN 10.2 g/dl (12.0-15.5); LYMPH # 1.7 10^3/uL (1.5-5.0); MEAN CORPUSCULAR HEMOGLOBIN 30.6 pg (27.0-33.0); MEAN CORPUSCULAR HGB CONC 32.9 g/dl (32.0-36.5); MEAN CORPUSCULAR VOLUME 93.1 fl (80.0-96.0); MONO # 0.6 10^3/uL (0.0-0.8); MONO % 12.4 % (0.0-5.0); NEUTROPHILS # 2.2 10^3/uL (1.5-8.5); NEUTROPHILS % 47.6 % (36.0-66.0); PLATELET COUNT, AUTOMATED 247 10^3/uL (150-450); RED BLOOD COUNT 3.33 10^6/uL (4.00-5.40); WHITE BLOOD COUNT 4.7 10^3/uL (4.0-10.0)
[2019-06-22 05:35] LABS: BLOOD UREA NITROGEN 11 MG/DL (7-18); CALCIUM LEVEL 8.4 MG/DL (8.5-10.1); CARBON DIOXIDE LEVEL 28 MEQ/L (21-32); CHLORIDE LEVEL 107 MEQ/L (98-107); CREATININE FOR GFR 0.62 MG/DL (0.55-1.30); GLOMERULAR FILTRATION RATE > 60.0 (>60); GLUCOSE, FASTING 92 MG/DL (70-100); POTASSIUM SERUM 4.8 MEQ/L (3.5-5.1); SODIUM LEVEL 140 MEQ/L (136-145)
[2019-06-22] MEDS: PANTOPRAZOLE 40MG TAB (PROTONIX) PO SCH (08:46)
[2019-06-22] MEDS: DOCUSATE SODIUM 100 MG CAP PO SCH ×2 (08:46→20:26)
[2019-06-22] MEDS: MOM 30ML SUSPENSION UDC PO SCH (08:46)
[2019-06-22] MEDS: HEPARIN SOD (PORCINE) 5000 UNITS/ML VIAL SC SCH ×2 (08:47→20:27)
[2019-06-22] MEDS: NICOTINE 21MG/24HR 1 EA TRANSDERMAL TD SCH (08:47)
--- NOTE | 2019-06-22 08:57 | REP ---
Two-view chest: 06/22/2019. Indication: New new postoperative assessment. Dyspnea. Comparison: The previous day. Findings: Right-sided chest tubes are redemonstrated. Small apical pneumothorax is present. Left greater than right basilar atelectasis is noted. There may be a very small left pleural effusion as there is blunting of the left costophrenic angle. The cardiac silhouette is not enlarged. Impression: Small right apical pneumothorax with right-sided chest tubes noted. Possible small left pleural effusion. Left greater than right basilar atelectasis. Electronically Signed by Jian Christensen DO 06/22/2019 08:48 A
--- NOTE | 2019-06-22 16:12 | IPN ---
DATE: 06/22/2019 This is the third postoperative day for Mrs. Welsh. Her chest output has markedly dropped. Her chest x-ray shows sharp costophrenic angles and no accumulation of fluid. Fluid analysis yesterday showed her fluid to have a higher triglyceride level in her serum. However, the cells are predominantly neutrophilic. I do not think this represents a true chylothorax. Her vital signs show a maximum temperature (Tmax) of 98.6 with a heart rate that ranges between 64-83 in a sinus rhythm, respiratory rate of 16-20 without the use of accessory muscles, who is 98-99% saturated on room air, and whose blood pressure is ranging from 115/56-94/53. Her intake and output for the past 24 hours has been recorded as 2136 in and 2600 out for a negativity of 464 mL. She has put 90 mL out the chest tube, and there is no air leak. Her weight today is 66.1 kg compared to 65.1 kg yesterday. She has been transferred to the progressive care unit, and therefore, a different bed scale. On physical examination, her lungs show normal vesicular sounds on either side. Percussion note is full to the diaphragm. Cardiac exam without murmurs, clicks, gallops, or rubs. I cannot feel her point of maximal impulse (PMI). S1 and S2 are normal. Abdomen is soft, nontender. Bowel sounds are positive. There is no hepatomegaly. No costovertebral angle (CVA) tenderness. She has had a bowel movement. Extremities show no pretibial edema. No calf tenderness. No differential swelling of the upper extremities. Her skin is warm, dry, and perfused without cyanosis or mottling, including that of the nail beds and the knees. Neck is supple. There is no jugular venous distention. No subcutaneous emphysema. Trachea is midline. Mouth shows her mucous membranes to be pink and moist. Lips and commissures without lesions. There is no thrush. Eyes show her pupils to be equal and reactive. Extraocular motor intact. Sclerae anicteric. Neurologic shows II-XII intact, along with gross motor and gross sensation intact. Gait is not tested, and psychiatric shows her to be awake and alert, oriented times three with appropriate mood and affect and conversational. Her white count today is 4.7 with hemoglobin and hematocrit of 10.2 and 31.0, up from 9.5 and 28.9. Platelet count is 247 and is stable, and differential shows 47% neutrophils, 36% lymphocytes, 12% monocytes. There are no immature forms. No toxic granulations. Her electrolytes are normal with a BUN and creatinine of 11 and 0.62, with glucose of 92 and a calcium of 8.4. Her pleural fluid analysis yesterday showed 7300 white cells, 70% of which were PMNs and 30% were mononuclear lymphocytes. Glucose was 68 with albumin of 1.2 and LDH of 70 with a corresponding serum LDH of 125. This looks to be therefore exudative. Triglycerides were 301 compared to a serum triglyceride level of 132. Her chest x-ray today shows her lung fully expanded to the chest wall. Costophrenic angles are sharp. Chest tubes are in good place. There are no infiltrates either on the PA or the lateral view. There is no subcutaneous emphysema. I have gone over pathology with Dr. 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 IMPRESSION: 1. Postoperative day #3 status post excision of posterior mediastinal mass/bronchiogenic cyst. 2. Prior tobacco abuse. 3. History of anxiety and depression. PLAN AND DISCUSSION: I will discontinue her chest tube today, wean her epidural and discontinue her Small. We will plan for discharge in the morning. We will give oral pain medicines during the wean.
[2019-06-23] MEDS: LEVALBUTEROL 1.25 MG/0.5 ML CONCENTRATE NEB NEB SCH ×3 (01:42→13:51)
[2019-06-23 04:00] VITALS: BP 116/61
[2019-06-23] MEDS: KETOROLAC 30 MG/ML VIAL (J1885) IV SCH ×2 (05:21→12:00)
[2019-06-23 05:34] LABS: BASO % 0.4 % (0.0-1.0); EOS # 0.2 10^3/uL (0.0-0.5); EOS % 4.5 % (0.0-3.0); HEMATOCRIT 32.8 % (36.0-47.0); HEMOGLOBIN 10.6 g/dl (12.0-15.5); LYMPH # 1.4 10^3/uL (1.5-5.0); LYMPH % 27.2 % (24.0-44.0); MEAN CORPUSCULAR HEMOGLOBIN 30.3 pg (27.0-33.0); MEAN CORPUSCULAR HGB CONC 32.3 g/dl (32.0-36.5); MEAN CORPUSCULAR VOLUME 93.7 fl (80.0-96.0); MONO # 0.5 10^3/uL (0.0-0.8); MONO % 10.6 % (0.0-5.0); NEUTROPHILS # 2.9 10^3/uL (1.5-8.5); NEUTROPHILS % 56.9 % (36.0-66.0); PLATELET COUNT, AUTOMATED 269 10^3/uL (150-450); WHITE BLOOD COUNT 5.1 10^3/uL (4.0-10.0)
[2019-06-23 05:55] LABS: BLOOD UREA NITROGEN 12 MG/DL (7-18); CALCIUM LEVEL 8.9 MG/DL (8.5-10.1); CARBON DIOXIDE LEVEL 29 MEQ/L (21-32); CHLORIDE LEVEL 105 MEQ/L (98-107); GLOMERULAR FILTRATION RATE > 60.0 (>60); GLUCOSE, FASTING 93 MG/DL (70-100); POTASSIUM SERUM 4.6 MEQ/L (3.5-5.1); SODIUM LEVEL 137 MEQ/L (136-145)
[2019-06-23 07:38] VITALS: BP 139/73
[2019-06-23] MEDS: PANTOPRAZOLE 40MG TAB (PROTONIX) PO SCH (08:19)
[2019-06-23] MEDS: DOCUSATE SODIUM 100 MG CAP PO SCH (08:19)
[2019-06-23] MEDS: MOM 30ML SUSPENSION UDC PO SCH (08:19)
[2019-06-23] MEDS: HEPARIN SOD (PORCINE) 5000 UNITS/ML VIAL SC SCH (08:19)
[2019-06-23] MEDS: NICOTINE 21MG/24HR 1 EA TRANSDERMAL TD SCH (08:20)
--- NOTE | 2019-06-23 08:30 | REP ---
Chest x-ray: Two views. History: Status post thoracotomy, excision of the post mediastinal mass. Findings: There is slight blunting of the posterior pleural angles and the left lateral pleural angle. The chest tubes have been removed from the right chest. The epidural catheter has been withdrawn. Monitoring electrodes are visible. No new infiltrate is seen. Cardiomediastinal silhouette is unremarkable. Impression: Small amounts of bilateral pleural fluid. Otherwise no acute disease. Electronically Signed by Ever Emmanuel MD 06/23/2019 08:21 A
[2019-06-23] MEDS ORDERED: PERCOCET PO (11:32)
--- NOTE | 2019-06-23 12:10 | DSES ---
DATE OF ADMISSION: 06/19/2019 DATE OF DISCHARGE: 06/23/2019 DISCHARGE DIAGNOSES: 1. Bronchogenic cyst. 2. Postop day 4 status post excision of posterior mediastinal bronchogenic cyst. 3. Tobacco abuse. 4. History of anxiety and depression. HOSPITAL COURSE: The patient is a 34-year-old white female who first went to the emergency room for disequilibrium. At that point in time, a chest x-ray was taken which showed a mass on the right side which was confirmed by CT scan, which showed to be a posterior mediastinal mass adjacent to the vertebral gutter. Its density was more than fluid but less than solid tissue. Because of concern for this being a neurogenic tumor with propensity to grow into the vertebral foramen, she was taken to the operating room where under VATS technique, the posterior mediastinal mass was removed. 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 She had a benign postoperative course with chest tubes being removed on the third postoperative day. She did develop milky chest tube drainage on the night of surgery, which continued on the first postoperative day with decreasing output. She was found to have a high triglyceride level than her serum, but it was predominantly neutrophilic. The chest tube drainage dropped markedly and chest tube was removed. On discharge today, her chest x-ray shows her lung fully expanded to the chest wall with clear costophrenic angles. She is being discharged today on Percocet 5/325 every 4-6 hours as needed for pain, #15. She is also being discharged on her home medications which include a nicotine patch 21 mg daily, and meclizine 25 mg every 8 hours as needed for disequilibrium. She has been instructed to keep the incisions opened to air and she may shower. I have asked her not to drive until she returns to see me in one week for followup. Her discharge white count is 5.1 with a hemoglobin and hematocrit of 10.6 and 32.8. Her electrolytes are normal with a BUN and creatinine of 12 and 0.6 and glucose of 93 and a calcium of 8.9.
== END 2019-06-23 16:20 | disposition home or self-care (01) | DRG 121 ==
LOC: M OR 08:59 → M ICU 17:45 → M PCU 06-22 09:37
PROVIDERS: ADMIT Thoracic Surgery (Cardiothoracic Vascular Surgery); ATTEND Thoracic Surgery (Cardiothoracic Vascular Surgery)
PROC: 0BJ08ZZ Inspection of Tracheobronchial Tree, Via Natural or Artificial Opening Endoscopic (ICD-10-PCS; 2019-06-19)
PROC: 0WBC4ZZ Excision of Mediastinum, Percutaneous Endoscopic Approach (ICD-10-PCS; principal; 2019-06-19 11:00)
DX: J98.4 Other disorders of lung (principal); F32.9 Major depressive disorder, single episode, unspecified; F41.9 Anxiety disorder, unspecified; Z87.891 Personal history of nicotine dependence

== ENCOUNTER → 2019-07-03 | Outpatient (CLI) | payer MEDICAID ==
[~2019-07-03] MED LIST changes: -LIDOCAINE 1% MDV 20ML VIAL SQ PRN; -LIDOCAINE 2% INJ 100 MG/5 ML SDV (FOR ANES.) As Ordered ONE; -LR 1,000 ML IV SCH; -MIDAZOLAM INJ 2 MG/2 ML VIAL (J2250) As Ordered ONE; -PROPOFOL 200 MG/20 ML VIAL As Ordered ONE; -ROCURONIUM BROMIDE 50 MG/5 ML VIAL As Ordered ONE; -ceFAZolin SOD 2 GM in IV 1 EA IV ONE; -fentaNYL 250 MCG/5 ML INJECTION (J3010) As Ordered ONE
--- NOTE | 2019-07-03 09:57 | REPPI ---
Clinical: History of neoplasm . Comparison: 06/23/2019 . Technique: PA and lateral. Findings: The mediastinum is stable with surgical clips again noted. The cardiac silhouette is normal. The lung carr are clear and without acute consolidation, effusion, or pneumothorax. The skeletal structures are intact and normal. Impression: 1. No acute cardiopulmonary process. Electronically Signed by Nathaniel Inman MD 07/03/2019 09:48 A
== END ==
LOC: M PLAIMG 09:35
PROVIDERS: ATTEND Thoracic Surgery (Cardiothoracic Vascular Surgery)
DX: D49.89 Neoplasm of unspecified behavior of other specified sites (principal)

== ENCOUNTER 2019-10-31 10:48 | Emergency (ER) | payer OTHER ==
[~2019-10-31] VITALS: Ht 162.6 cm; Wt 64.2 kg
[~2019-10-31 10:48] MED LIST changes: -MECL-68 PO; +MECL1TAB31 PO
[2019-10-31 10:49] VITALS: BP 159/79
[2019-10-31] MEDS ORDERED: HYDR50TA70 (10:54)
[2019-10-31] MEDS ORDERED: SERT25TA21 (10:54)
[2019-10-31] MEDS ORDERED: CEPH500C (10:54)
[2019-10-31] MEDS ORDERED: PRED10TA2 PO (11:16)
[2019-10-31] MEDS ORDERED: ERYT1OIN26 OD (11:16)
== END 2019-10-31 11:35 | disposition home or self-care (01) ==
LOC: M ED 10:48
DX: H01.001 Unspecified blepharitis right upper eyelid (principal); J44.9 Chronic obstructive pulmonary disease, unspecified; F41.9 Anxiety disorder, unspecified; F32.9 Major depressive disorder, single episode, unspecified; F17.200 Nicotine dependence, unspecified, uncomplicated; Z88.0 Allergy status to penicillin; Z79.899 Other long term (current) drug therapy; Z79.2 Long term (current) use of antibiotics

== ENCOUNTER 2020-01-03 14:14 | Emergency (ER) | payer OTHER ==
[~2020-01-03] VITALS: Ht 162.6 cm; Wt 65.5 kg
[~2020-01-03 14:14] MED LIST changes: +CEPH500C; +ERYT5OIN25 OD; +HYDR50TA70; +PRED10TA2 PO; +SERT25TA21
[2020-01-03] MEDS ORDERED: SERTRALINE (14:23)
[2020-01-03 15:38] LABS: BASO # 0.1 10^3/uL (0.0-0.2); BASO % 0.6 % (0.0-1.0); EOS # 0.2 10^3/uL (0.0-0.5); EOS % 2.4 % (0.0-3.0); HEMATOCRIT 42.1 % (36.0-47.0); HEMOGLOBIN 13.9 g/dl (12.0-15.5); LYMPH # 2.1 10^3/uL (1.5-5.0); LYMPH % 26.4 % (24.0-44.0); MEAN CORPUSCULAR HEMOGLOBIN 29.8 pg (27.0-33.0); MEAN CORPUSCULAR VOLUME 90.3 fl (80.0-96.0); MONO # 0.6 10^3/uL (0.0-0.8); MONO % 7.1 % (0.0-5.0); NEUTROPHILS # 4.9 10^3/uL (1.5-8.5); NEUTROPHILS % 63.2 % (36.0-66.0); PLATELET COUNT, AUTOMATED 336 10^3/uL (150-450); RED BLOOD COUNT 4.66 10^6/uL (4.00-5.40); WHITE BLOOD COUNT 7.8 10^3/uL (4.0-10.0)
[2020-01-03 15:58] LABS: ERYTHROCYTE SEDIMENTATION RATE 9 mm/hr (0-20)
[2020-01-03 16:11] LABS: APPEARANCE, URINE CLEAR (CLEAR); BACTERIA, URINE AUTO 1+ (NEGATIVE); BILIRUBIN, URINE AUTO NEGATIVE (NEGATIVE); BLOOD, URINE BLOOD NEGATIVE (NEGATIVE); COLOR, URINE STRAW (YELLOW); GLUCOSE, URINE (UA) AUTO NEGATIVE (NEGATIVE); KETONE, URINE AUTO NEGATIVE (NEGATIVE); LEUKOCYTE ESTERASE, URINE AUTO NEGATIVE (NEGATIVE); NITRITE, URINE AUTO NEGATIVE (NEGATIVE); PROTEIN, URINE AUTO NEGATIVE (NEGATIVE); RBC, URINE AUTO 1 /HPF (0-3); SPECIFIC GRAVITY URINE AUTO 1.001 (1.002-1.035); SQUAMOUS EPITHELIAL CELL UR AU 0 /HPF (0-6); UROBILINOGEN, URINE AUTO 0.2 mg/dL (0.0-2.0); WBC, URINE AUTO 0 /HPF (0-3)
[2020-01-03 16:18] LABS: BLOOD UREA NITROGEN 5 MG/DL (7-18); C REACTIVE PROTEIN QUANTITATIV < 0.30 MG/DL (0.00-0.30); CALCIUM LEVEL 9.3 MG/DL (8.5-10.1); CARBON DIOXIDE LEVEL 28 MEQ/L (21-32); CHLORIDE LEVEL 107 MEQ/L (98-107); CREATININE FOR GFR 0.68 MG/DL (0.55-1.30); FREE T4 0.94 NG/DL (0.76-1.46); GLOMERULAR FILTRATION RATE > 60.0 (>60); GLUCOSE, FASTING 80 MG/DL (70-100); POTASSIUM SERUM 4.3 MEQ/L (3.5-5.1); SODIUM LEVEL 138 MEQ/L (136-145)
[2020-01-03 16:33] LABS: AMPHETAMINES LEVEL URINE NEGATIVE (NEGATIVE); BARBITURATES URINE NEGATIVE (NEGATIVE); BENZODIAZEPINES URINE NEGATIVE (NEGATIVE); CANNABINOIDS URINE NEGATIVE (NEGATIVE); COCAINE METABOLITE URINE NEGATIVE (NEGATIVE); METHADONE URINE NEGATIVE (NEGATIVE); OPIATES URINE NEGATIVE (NEGATIVE); PHENCYCLIDINE URINE NEGATIVE (NEGATIVE)
[2020-01-03 17:06] VITALS: BP 122/74
[2020-01-03] MEDS ORDERED: MEDR4PAK PO (17:06)
[2020-01-03] MEDS ORDERED: ALL10TAB2 PO (17:06)
== END 2020-01-03 17:27 | disposition home or self-care (01) ==
LOC: M ED 14:14
DX: R22.0 Localized swelling, mass and lump, head (principal); J44.9 Chronic obstructive pulmonary disease, unspecified; F41.9 Anxiety disorder, unspecified; F32.9 Major depressive disorder, single episode, unspecified; F17.200 Nicotine dependence, unspecified, uncomplicated; Z88.1 Allergy status to other antibiotic agents; Z79.899 Other long term (current) drug therapy

== ENCOUNTER → 2021-03-28 | Outpatient (CLI) | payer OTHER ==
[~2021-03-28] MED LIST changes: +ALL10TAB2 PO; +MEDR4PAK PO; +SERTRALINE
--- NOTE | 2021-03-28 11:05 | REP ---
INDICATION: ABN FINDING OF LUNG COMPARISON: 05/24/2019 TECHNIQUE: Axial noncontrast images from the thoracic inlet to the upper abdomen with coronal and sagittal reformations. This CT examination was performed using the following dose reduction techniques: Automated exposure control, adjustment of mA and/or kv according to the patient's size, and use of iterative reconstruction technique. FINDINGS: Evaluation of the mediastinum demonstrates normal thoracic aorta, pulmonary vasculature, and heart/pericardium. No adenopathy. No mediastinal fluid. The tracheobronchial tree is patent. Surgical clips along the posterior mediastinum adjacent to the descending thoracic aorta is consistent with prior resection and there is a small residual area of scarring along the right paraspinous space at the site of prior mass. Bilateral lung carr are well aerated and clear. Small chronic 4 mm noncalcified nodule in the anterior perifissural right upper lobe (image 52). No acute consolidation, new significant nodule or mass. No effusion. No pneumothorax. Surrounding musculoskeletal structures are intact and normal. Limited upper abdomen demonstrates normal bilateral adrenal glands. IMPRESSION: 1. Very minimal benign appearing postsurgical changes at the mediastinum and right paraspinous region with complete resection of the previous identified mass. 2. Stable 4 mm nodule in the anterior right upper lobe likely representing small benign granuloma. If necessary, consider 12 month follow-up examination to confirm stability. 3. No acute mediastinal or pleuroparenchymal process otherwise appreciated. <Electronically signed by Nathaniel Inman > 03/28/21 [id number]
== END ==
LOC: M RAD 09:50
PROVIDERS: ATTEND Internal Medicine Pulmonary Disease
DX: R91.1 Solitary pulmonary nodule (principal)

== ENCOUNTER → 2021-07-20 | Outpatient (REF) | payer OTHER ==
[2021-07-20 15:35] LABS: INFLUENZA A AMPLIFICATION POSITIVE (NEGATIVE); INFLUENZA B AMPLIFICATION NEGATIVE (NEGATIVE)
== END ==
LOC: M LAB REF 14:44
PROVIDERS: ATTEND Physician Assistant Medical
DX: J06.9 Acute upper respiratory infection, unspecified (principal)

== ENCOUNTER 2024-09-23 13:18 | Emergency (ER) | payer MEDICAID, OTHER ==
[~2024-09-23] VITALS: Ht 162.6 cm; Wt 73.5 kg
[~2024-09-23 13:18] MED LIST changes: +MECL-209 PO; -MECL1TAB31 PO
[2024-09-23] MEDS ORDERED: BUPR1TAB52 (14:07)
[2024-09-23] MEDS ORDERED: FLUO-365 (14:07)
[2024-09-23] MEDS ORDERED: TRAZ-252 (14:07)
[2024-09-23] MEDS ORDERED: FLUO-290 (14:07)
[2024-09-23 16:38] VITALS: BP 125/76; TEMP 98.5; O2SAT 96
[2024-09-23] MEDS ORDERED: ALBU2.5V10 NEB (16:54)
[2024-09-23] MEDS ORDERED: NEBU1EAC78 MC (16:54)
[2024-09-23] MEDS ORDERED: VENTAER INH (16:54)
== END 2024-09-23 17:06 | disposition home or self-care (01) ==
LOC: M ED 13:18
DX: J06.9 Acute upper respiratory infection, unspecified (principal); J44.9 Chronic obstructive pulmonary disease, unspecified; F17.200 Nicotine dependence, unspecified, uncomplicated; Z88.0 Allergy status to penicillin

== ENCOUNTER 2024-10-15 11:53 | Emergency (ER) | payer OTHER ==
[~2024-10-15] VITALS: Ht 162.6 cm; Wt 73.7 kg
[~2024-10-15 11:53] MED LIST changes: +ALBU2.5V10 NEB; +BUPR1TAB52; +FLUO-290; +FLUO-365; +NEBU1EAC78 MC; +TRAZ-252; +VENTAER INH
[2024-10-15 12:37] LABS: BASO # 0.1 10^3/uL (0.0-0.2); BASO % 1.1 % (0.0-1.0); EOS # 0.3 10^3/uL (0.0-0.5); EOS % 5.5 % (0.0-3.0); HEMATOCRIT 37.9 % (36.0-47.0); HEMOGLOBIN 13.1 g/dl (12.0-15.5); LYMPH # 2.2 10^3/uL (1.5-5.0); LYMPH % 40.4 % (24.0-44.0); MEAN CORPUSCULAR HEMOGLOBIN 31.3 pg (27.0-33.0); MEAN CORPUSCULAR HGB CONC 34.6 g/dl (32.0-36.5); MEAN CORPUSCULAR VOLUME 90.5 fl (80.0-96.0); MONO # 0.6 10^3/uL (0.0-0.8); NEUTROPHILS # 2.3 10^3/uL (1.5-8.5); NEUTROPHILS % 41.8 % (36.0-66.0); PLATELET COUNT, AUTOMATED 383 10^3/uL (150-450); RED BLOOD COUNT 4.19 10^6/uL (4.00-5.40); WHITE BLOOD COUNT 5.4 10^3/uL (4.0-10.0)
[2024-10-15 13:09] LABS: HCG, SERUM QUALITATIVE NEGATIVE (NEGATIVE)
[2024-10-15 13:14] LABS: CK-MB VALUE MASS < 1.0 NG/ML (<3.6); CPK CREATINE PHOSPHOKINASE 124 U/L (34-145)
[2024-10-15] MEDS ORDERED: ISOVUE-370 76% 100ML VIAL As Ordered ONE (14:03)
[2024-10-15] MEDS: KETOROLAC 30 MG/ML 1ML VIAL IV ONE (14:21)
[2024-10-15] MEDS: NS (Normal Saline) 0.9% 1,000 ML IV ONE (14:22)
[2024-10-15] MEDS ORDERED: DOXY-442 PO (14:59)
[2024-10-15] MEDS ORDERED: MEDR4PAK PO (14:59)
[2024-10-15] MEDS ORDERED: BENZ200C70 PO (14:59)
[2024-10-15 15:45] VITALS: BP 135/78; TEMP 98.1; O2SAT 99
== END 2024-10-15 16:02 | disposition home or self-care (01) ==
LOC: M ED 11:53
DX: S22.42XA Multiple fractures of ribs, left side, initial encounter for closed fracture (principal); J44.0 Chronic obstructive pulmonary disease with (acute) lower respiratory infection; X58.XXXA Exposure to other specified factors, initial encounter; Y92.9 Unspecified place or not applicable; Y93.9 Activity, unspecified; Y99.9 Unspecified external cause status; F41.9 Anxiety disorder, unspecified; F32.A Depression, unspecified; F17.200 Nicotine dependence, unspecified, uncomplicated
CPT/HCPCS: 36415; 71045; 71275; 80047; 82550; 82553; 84484; 84703; 85025; 87486; 87581; 87633; 87798; 93005; 96374; 99284; J1885; Q9967

== ENCOUNTER 2025-07-23 19:24 | Emergency (ER) | payer MEDICAID, OTHER ==
[~2025-07-23] VITALS: Ht 162.6 cm; Wt 73.5 kg
[~2025-07-23 19:24] MED LIST changes: +BENZ200C70 PO; +BUPR-670; -BUPR1TAB52; +DOXY-442 PO
[2025-07-23 19:26] VITALS: BP 162/96; TEMP 97.6; O2SAT 100
== END 2025-07-23 20:02 | disposition left against medical advice (07) ==
LOC: M ED 19:24
DX: Z53.21 Procedure and treatment not carried out due to patient leaving prior to being seen by health care provider (principal)